=== PATIENT | female | born 1940 | race Caucasian/White ===

== ENCOUNTER → 2023-05-06 12:34 | Outpatient (REF) | payer OTHER, SELFPAY | LOC: RAD 12:34 | PROVIDERS: ATTENDING PHYSICIAN Surgery Vascular Surgery; FAMILY PHYSICIAN Internal Medicine Geriatric Medicine | DX: I71.43 Infrarenal abdominal aortic aneurysm, without rupture (principal); I65.23 Occlusion and stenosis of bilateral carotid arteries | CPT/HCPCS: 76770; 93880 ==

== ENCOUNTER → 2024-05-17 13:00 | Outpatient (REF) | payer OTHER, SELFPAY | LOC: DHVS 13:00 | PROVIDERS: ATTENDING PHYSICIAN Registered Nurse; FAMILY PHYSICIAN Internal Medicine Geriatric Medicine | DX: I71.43 Infrarenal abdominal aortic aneurysm, without rupture (principal); I65.23 Occlusion and stenosis of bilateral carotid arteries | CPT/HCPCS: 76770; 93880 ==

== ENCOUNTER 2024-08-29 22:48 | Inpatient (IN) | payer OTHER, SELFPAY ==
[2024-08-29] VITALS (7 sets, daily range): BP systolic 97–127; BP diastolic 56–92
[2024-08-29 20:25] LABS: % Basophils 0.6 % (0-2); % Eosinophils 1.4 % (0-6); % Immature Granulocytes 0.3 % (0-0.5); % Lymphocytes 21.9 % (20.5-51.1); % Monocytes 11.5 % (1.7-9.3); % Neutrophils 64.3 % (42.2-75.2); Absolute Basophils 0.1 10^3/uL (0-0.2); Absolute Eosinophils 0.1 10^3/uL (0-0.7); Absolute Lymphocytes 2.2 10^3/uL (1.2-3.4); Absolute Monocytes 1.2 10^3/uL (0.1-0.6); Absolute Neutrophils 6.6 10^3/uL (1.4-6.5); Hematocrit 35.5 % (37.0-47.0); Hemoglobin 11.5 g/dL (12.0-16.0); Mean Corp Hgb Conc. 32.4 g/dL (33.0-37.0); Mean Corpuscular Hgb 28.1 pg (27.0-31.0); Mean Corpuscular Volume 86.8 fL (81.0-99.0); Nucleated Red Blood Cells % 0 %; Platelet Count 176 10^3/uL (130-400); Red Blood Cell Count 4.09 10^6/uL (4.20-5.40); Red Cell Dist. Width 16.1 % (11.5-14.5); White Blood Cell Count 10.2 10^3/uL (4.8-10.8)
--- NOTE | 2024-08-29 20:40 | ED.GENMED ---
History of Present Illness
General
Chief Complaint: Chest Pain
Source: patient and spouse
Exam Limitations: none
Time Seen by Provider: 08/29/24 20:28
History of Present Illness
History of Present Illness:
83-year-old female with intermittent episodes of chest tightness and intermittent episodes of throat burning. Has had this intermittently in the past but much worse the last few days. Some shortness of breath with this. Currently asymptomatic
Past History
Past History
ED Past Medical History: CAD, COPD, GERD, HTN, Valvular disease and Other (umbilical hernia, rheumatoid arthritis)
ED Past Surgical History: Cardiac (cardiac stent x2, iliac artery stent) and Orthopedic (lumbar laminectiomy , right shoulder replacement, right TKR)
Social History
Tobacco: Non-smoker
Alcohol: None
Drug: None
Personal:
Living: with family
Review of Systems
Review of Systems
All Other Systems: Not applicable
Constitutional: Denies fever or chills
Respiratory: Denies cough
Phy Exam
Physical Exam
Physical Exam:
GENERAL: Alert and oriented in no apparent distress
EYE: Orbits normal.
NECK: Supple, no significant adenopathy.
ENT: Hoarse voice. Chronic
CARDIAC: Irregular irregular.
LUNGS: Clear breath sounds,normal
ABDOMEN: Soft, without focal tenderness or distention
NEUROLOGICAL: Alert and oriented , grossly non-focal
SKIN: Warm and dry, no rash or lesion, no discoloration, skin intact.
MUSCULOSKELETAL: No edema,no deformity.Good color
PSYCH: Normal and appropriate interaction.
Scores
Heart Score for Chest Pain Patients
STEMI patient?: No
History: Moderately Suspicious
ECG: Nonspecific Repolarization
Age: >/= 65 years
Risk Factors: >/= 3 Risk Factors or History of CAD
Troponin: </= Normal Limit
Heart Score for Chest Pain Patients: 6
Heart Score Risk: 20.3% MACE over next 6 weeks
Course
Orders/Labs/Results
Orders:
Orders
08/29/24 20:13
EKG [Electrocardiogram (*1)] Urgent
Reason for Study: Chest Pain
EKG- Treatment ONCE
08/29/24 20:17
Basic Metabolic Panel Urgent
Complete Blood Count/With Diff Urgent
Troponin I Urgent
08/29/24 20:40
CXR Port [CR Chest Portable - 1 View] Urgent
Comment:
Reason For Exam: Chest pain
Reason Study Needs to be Portable: Patient Unstable
08/29/24 21:19
Heparin 3,800 units IV NOW STA
Nursing to Place Non Medication Order As Directed
Physician Order: PTT 6 hours after initial start of Heparin infusion
Above order entered?: Yes
08/29/24 21:22
PTT Urgent
Comment: Obtain baseline before beginning heparin infusion if not already collected
08/29/24 21:30
Heparin 88657 Units/250 ml 25,000 units in 250 ml IV PER PROTOCOL
Weight to be used for heparin protocol in kilograms (kg):: 63.9
Protocol:: Cardiac Tx/Acute Coronary
PTT Goal Range to be used:: PTT 73 to 111 seconds
Order type:: Initial
INITIAL Infusion Dose (UNITS/KG/hr) & then follow protocol:: 12 units/kg/hr
Infusion Dose in UNITS/hr & then follow protocol (UNITS/hr):: 750
INFUSION RATE in mL/hr & then follow protocol (mL/hr):: 7.5
PTT less than or equal to 64 seconds:: Increase rate by 200 units/hr (+ 2 mL/hr)
PTT 64.1 to 72.9 seconds:: Increase rate by 100 units/hr (+ 1 mL/hr)
PTT 73 to 111 seconds:: Target Range. No change in rate.
PTT 111.1 to 130.9 seconds:: Decrease rate by 100 units/hr (- 1 mL/hr)
PTT 131 to 199.9 seconds:: HOLD for 1 hr. Then decrease rate by 200 units/hr (- 2 mL/hr)
PTT greater than or equal to 200 seconds:: HOLD for 2 hrs & Notify Provider. Then decrease by 200 units/hr (-
2 mL/hr)
Lab follow-up:: Each change, PTT q6h until 2 consecutive are therapeutic. Then PTT
daily.
08/29/24 22:00
Flush (0.9% Sodium Chloride) [Flush (Nss)] See Dose Instructions IV PER PROTOCOL
08/29/24 22:12
Metoprolol [Lopressor] 5 mg .ROUTE .STK-MED ONE
08/29/24 22:13
Metoprolol [Lopressor] 2.5 mg IV NOW STA
08/29/24 22:19
Electrocardiogram (*1) Stat
Reason for Study: Other
Other Reason for Exam: chest pain
EKG- Treatment ONCE
Troponin I Urgent
08/29/24 22:25
Metoprolol [Lopressor] 5 mg .ROUTE .STK-MED ONE
08/29/24 22:26
Metoprolol [Lopressor] 2.5 mg IV NOW STA
08/30/24 03:50
PTT Routine
Abnormal Lab Results
08/29/24
20:17
RBC 4.09 L 10^6/uL
(4.20-5.40)
Hgb 11.5 L g/dL
(12.0-16.0)
Hct 35.5 L %
(37.0-47.0)
MCHC 32.4 L g/dL
(33.0-37.0)
RDW 16.1 H %
(11.5-14.5)
MPV 12.0 H fL
(7.4-10.4)
Absolute Neuts (auto) 6.6 H 10^3/uL
(1.4-6.5)
Absolute Monos (auto) 1.2 H 10^3/uL
(0.1-0.6)
Monocytes % 11.5 H %
(1.7-9.3)
Chloride 108 H mmol/L
(98-107)
BUN 21 H mg/dl
(7-17)
Glucose 121 H mg/dl
(70-99)
Troponin I 0.049 H* ng/ml
08/29/24 20:17
08/29/24 20:17
Vital Signs
Initial and Last Documented VS:
Initial Vital Signs
Temp BP Pulse Ox
97.6 F 127/77 96
08/29/24 20:12 08/29/24 20:12 08/29/24 20:12
Last Documented Vital Signs
Temp Pulse Resp BP Pulse Ox
97.6 F 104 8 115/79 97
08/29/24 20:12 08/29/24 22:26 08/29/24 22:00 08/29/24 22:26 08/29/24 22:00
MDM/Problems Addressed
Differential Diagnosis Includes:
Patient's story is somewhat concerning for new onset angina. In addition she is in atrial fibrillation. No contraindication to thinners. Will start heparin. Rate controlled currently on her own metoprolol.
*Pulse Oximetry
Patient hypoxic: no (97%)
*EKG
Interpreted by ED Provider?: Yes
Interpretation: abnormal
Comparison EKG: changes noted
Heart Rate: 78
Rate: normal
Rhythm: a-fib and PVC's
[place]: left axis deviation
Interval: normal interval
QRS Pattern: normal QRS
Ischemia: non-specific ST changes
*Critical Care Note
Total Time (30-74mins, 75-104mins- exclusive of procedures): 45
Update Note
Update Note:
2219.... Patient some recurring symptoms of chest tightness into her throat. A-fib was more rapid at this time. Blood pressure borderline however. Given a small dose of Lopressor. Rechecked. Blood pressure stable. Will give another 2-1/2 of
Lopressor. Check EKG and troponin.
2229... Recheck. Repeat EKG atrial fibrillation 97. No ischemic changes. Left axis deviation.
ED Attending Note
-
Portions of this chart may have been created with voice recognition software.� Occasional wrong word or��sound alike� substitutions may have occurred due to the inherent limitations of voice recognition software.
Discharge Plan
Departure
Patient Disposition: Admit
Date of Disposition: 08/29/24
Time of Disposition: 21:20
Presentation/result/management discussed w/ accepting MD/DO: Hospitalist
Discharge Problem:
Unstable angina, New diagnosis atrial fibrillation
Prescriptions:
No Action
ezetimibe [Zetia] 10 mg Tablet
10 mg PO DAILY
atorvastatin [Lipitor] 40 mg Tablet
40 mg PO HS
aspirin 81 mg Tablet,Delayed Release (Dr/Ec)
81 mg PO DAILY
tramadol 50 mg Tablet
50 mg PO BID
prednisone 1 mg Tablet
4 mg PO DAILY
losartan 25 mg Tablet
25 mg PO DAILY
docusate sodium [Colace] 100 mg Capsule
200 mg PO DAILY
metoprolol succinate [Toprol XL] 25 mg Tablet Extended Release 24 Hr
25 mg PO DAILY
cholecalciferol (vitamin D3) [Vitamin D3] 25 mcg (1,000 unit) Tablet
25 mcg PO DAILY
omeprazole 20 mg Tablet,Delayed Release (Dr/Ec)
20 mg PO BID
PreserVision AREDS 2,148 mcg-113 mg-45 mg-17.4mg Tablet
1 tab PO BID
Referrals:
Isis Hoskins MD [Family Provider, Internal Medicine]
Interventions
Interventions:
*Risk Screen - Suicide Last Done: 08/29/24 20:34
*General Assessment Last Done: 08/29/24 20:12
*Neglect/Abuse Screening Last Done: 08/29/24 20:34
*ED- Fall Risk Assessment Last Done: 08/29/24 20:12
*ED COVID-19 Vaccine History Last Done: 08/29/24 20:12
ED- Cardiac Assessment Last Done: 08/29/24 20:12
Discharge Date and Time
Print Language: [id number]
[2024-08-29 20:52] LABS: Troponin I 0.049 ng/ml
[2024-08-29 20:54] LABS: Blood Urea Nitrogen 21 mg/dl (7-17); Calcium 9.5 mg/dl (8.4-10.2); Carbon Dioxide 24 mmol/L (22-30); Chloride 108 mmol/L (98-107); Glucose 121 mg/dl (70-99); Sodium 139 mmol/L (135-145); eGFR > 60.00
[2024-08-29 21:38] LABS: APTT 29.6 Sec (23.4-35.0)
[2024-08-29] MEDS: FLUSH (NSS) 1 FLUSH IV (21:40)
[2024-08-29] MEDS: HEPARIN 3800 UNITS IV (21:40)
[2024-08-29] MEDS: HEPARIN 25000 UNITS/250 ML IV (21:48)
--- NOTE | 2024-08-29 21:53 | PTCARENOTE ---
this RN had second RN, Michaela Zimmerman co-sign heparin bolus of 3800 U. MAR did not make second RN put in credentials.
--- NOTE | 2024-08-29 21:59 | HPS.HSE ---
Family Physician
-
Family Physician: Isis Hoskins
Chief Complaint
-
chest pain
History of Present Illness
Patient is a 83-year-old female with past medical history significant for hypertension, hyperlipidemia, hypothyroidism, rheumatoid arthritis, peripheral vascular disease and AAA who presented to [facility] ED for evaluation of chest pain. Patient and
at bedside assisted with HPI. Patient reports she has intermittently had this chest discomfort for months, sometime having weeks go by in between episodes. This current episode has been the most severe and has not alleviated since its start
yesterday evening around dinner. She describes chest pain as a burning and tightness in the midsternal area along with tightness in throat. She denies any recent illness, fever, chills, cough, shortness of breath, nausea, vomiting, constipation,
diarrhea or urinary symptoms.
Medical History
Past Medical History
Past Medical History: Reports Other
Additional Past Medical History:
hypertension
hyperlipidemia
hypothyroidism
rheumatoid arthritis
peripheral vascular disease
AAA (abdominal aortic aneurysm)
lumbar disc disease
pseudogout of right knee
inferior myocardial infarction
Past Surgical History: Reports Other
Additional Past Surgical History:
angioplasty/stenting of the right coronary artery
angioplasty/stenting of the left anterior descending artery 02/24
lumbar laminectomy/fusion 12/03
bilateral cataract extractions
right shoulder replacement 12/07
stenting of the iliac artery
r knee repl 03/2020
Social History
Tobacco: Former Smoker
Alcohol: None
Drug: None
Personal:
Living: With Family
Employment: Retired
Family History
Family History: Not pertinent
Allergies / Home Medications
Allergies reflects when Allergies were last updated in [employer].
Home Medications with original date entered in [employer]
Allergy/Medication List:
Allergies
Allergy/AdvReac Type Severity Reaction Status Date / Time
pantoprazole Allergy Shortness Verified 08/29/24 20:11
of Breath
Home Medications
aspirin 81 mg tablet,delayed release 81 mg PO DAILY 08/29/24
atorvastatin 40 mg tablet (Lipitor) 40 mg PO HS 08/29/24
cholecalciferol (vitamin D3) 25 mcg (1,000 unit) tablet (Vitamin D3) 25 mcg PO DAILY 08/29/24
docusate sodium 100 mg capsule (Colace) 200 mg PO DAILY 08/29/24
ezetimibe 10 mg tablet (Zetia) 10 mg PO DAILY 08/29/24
losartan 25 mg tablet 25 mg PO DAILY 08/29/24
metoprolol succinate 25 mg tablet,extended release 24 hr (Toprol XL) 25 mg PO DAILY 08/29/24
omeprazole 20 mg tablet,delayed release 20 mg PO BID 08/29/24
prednisone 1 mg tablet 4 mg PO DAILY 08/29/24
tramadol 50 mg tablet 50 mg PO BID 08/29/24
vitamins A,C,V-xmzx-tyoabk 2,148 mcg-113 mg-45 mg-17.4 mg tablet (PreserVision AREDS) 1 tab PO BID 08/29/24
Review of Systems
-
History Source: Patient
Cardiac: Reports Chest Pain (tightness and burning that radiates into to throat )
Physical Exam
Vital Signs
Vital Signs
Temp Pulse Resp BP Pulse Ox
97.6 F 115 11 103/56 97
08/29/24 20:12 08/29/24 21:15 08/29/24 21:15 08/29/24 21:00 08/29/24 21:15
Physical Exam
General: Well Developed, Well Nourished, Conversant and Morbidly Obese
HEENT: NormoCephalic, Moist mucous membranes, Atraumatic, Nose Appears Normal and Ears Appear Normal
Respiratory: Clear
Cardiac: S1/S2, Irregular Rhythm and Tachycardia
Breast: Deferred by me
GI: Soft, Non Tender, Non Distended and Normal Bowel Sounds
Rectal: Deferred by Provider
Genito-urinary: Deferred by me
Musculoskeletal: No Clubbing, No Cyanosis and No Edema
Skin: Warm and IV/Catheter Site
Neuro: Awake, Alert, AO x 3 and Nonfocal/grossly intact
Psych: Calm and Intact Judgment/Insight
Laboratory Results
-
08/29/24 20:17
08/29/24 20:17
Laboratory Results
APTT 29.6 Sec (23.4-35.0) 08/29/24 21:22
Total Bilirubin Cancelled 08/29/24 20:17
AST Cancelled 08/29/24 20:17
ALT Cancelled 08/29/24 20:17
Alkaline Phosphatase Cancelled 08/29/24 20:17
Troponin I 0.049 ng/ml H* 08/29/24 20:17
Data Reviewed
-
Diagnostic Radiology: Report Reviewed by me (CXR: Mild CHF. Cannot rule out component of underlying chronic interstitial lung disease.)
Medical Tests (Nuc Med, Echo, EKG etc): Report Reviewed by me (EKG: ATRIAL FIBRILLATION WITH PREMATURE VENTRICULAR OR ABERRANTLY CONDUCTED COMPLEXES LEFT AXIS DEVIATION INFERIOR INFARCT (CITED ON OR BEFORE 08-FEB-2023) POSSIBLE ANTERIOR INFARCT ,
AGE UNDETERMINED)
Lab Data: Labs Reviewed by me (trop 0.049)
Impression/Plan
-
IMPRESSION/PLAN:
#new onset atrial fibrillation
trop 0.049
CXR: Mild CHF.
Cannot rule out component of underlying chronic interstitial lung disease.
EKG: ATRIAL FIBRILLATION WITH PREMATURE VENTRICULAR OR ABERRANTLY CONDUCTED COMPLEXES
LEFT AXIS DEVIATION
INFERIOR INFARCT (CITED ON OR BEFORE 08-FEB-2023)
POSSIBLE ANTERIOR INFARCT , AGE UNDETERMINED
- Admit to IVU
- Consult Cardiology
- Heparin gtt
- Cardizem gtt
- request records from [facility], Dr. Marty Pearce
#hypertension
- continue losartan and metoprolol
#hyperlipidemia
- continue aspirin, atorvastatin and ezetimibe
#Hx inferior myocardial infarction
s/p angioplasty/stenting
- continue aspirin and atorvastatin
#rheumatoid arthritis
- continue prednisone
#hypothyroidism
#peripheral vascular disease
#AAA (abdominal aortic aneurysm)
#lumbar disc disease
#pseudogout of right knee
Code status: DNR
DVT prophylaxis: heparin gtt
[2024-08-29] MEDS: LOPRESSOR 2.5 MG IV ×2 (22:14→22:26)
[2024-08-29] MEDS: CARDIZEM 125 IV (22:49)
--- NOTE | 2024-08-29 22:51 | W.PN.UPDATE ---
Update Note
Progress Note Update
Patient seen in conjunction with HUGH. I agree the findings suspect COVID is not probably [employer].
Briefly, this is a 83-year-old female with past medical history significant for CAD status post inferior myocardial infarction, hypertension, hyperlipidemia, AAA, rheumatoid arthritis, hypothyroid presenting to the emergency department with a 1 day
history of substernal chest pain pressure and some dyspnea on exertion. Denies any nausea vomiting diaphoresis. Denies any lower extremity swelling. Denies any recent changes in medications. Denies any prior history of atrial fibrillation.
In the emergency department the patient was found to be tachycardic to the 140s. She was in atrial fibrillation. ECG shows A-fib rate in the 140s. Troponin was 0.049.
On vitals blood pressure was 115/80 with a pulse of 110 and she was satting 95% on room air. CBC was unremarked. Electrolytes were all within normal limits. Magnesium is pending. BUN and creatinine were normal.
Chest x-ray shows no acute infiltrates.
Patient received a bolus of metoprolol with some improvement in her heart rate. She currently states that she is not having any chest discomfort.
Given elevated troponin, repeat afebrile, history of HI, and she likely has rate related ischemic changes but cannot rule out myocardial injury.
Assessment and plan
Rate related ischemia likely secondary to uncontrolled atrial fibrillation
- Admit to IVU
- Started on heparin drip
- Will give 1 dose of aspirin
- Will start Cardizem drip to maintain rate less than 100
- Continue patient's home metoprolol daily, continue home aspirin and statin
- Check TSH, check echo, cardiovascular panel
- N.p.o. after midnight in case patient may need cardioversion
- Cardiology consultation
DVT prophylaxis�on heparin drip
CODE STATUS�DNR
[2024-08-29 23:07] LABS: Troponin I 0.059 ng/ml
[2024-08-30] VITALS (10 sets, daily range): BP systolic 101–136; BP diastolic 58–95; BMI 30.1; BMI 29.9
--- NOTE | 2024-08-30 02:52 | PTCARENOTE ---
Pt. rec'd from ED into room 2248 AAOx3, (very [place]), VSS, in Afib rate 80's-110's. Cardizem infusing at 5 mg/hr, heparin at 750 units/hr. Pt. denies any CP/discomfort. Bilateral lungs with faint crackles in bases, RA pulse ox 99%, no shortness of
breath. Pt. encouraged to stay in bed to control HR, Purewick in place. Pt. oriented to room and plan of care, understanding verbalized. Pt. currently sleeping, current HR 75 - A-fib.
[2024-08-30 04:03] LABS: APTT 125.9 Sec (23.4-35.0)
[2024-08-30 04:17] LABS: ALT (SGPT) 16 U/L (0-35); AST (SGOT) 28 U/L (14-36); Albumin 3.9 g/dl (3.5-5.0); Alkaline Phosphatase 55 U/L (38-126); Blood Urea Nitrogen 18 mg/dl (7-17); Carbon Dioxide 23 mmol/L (22-30); Chloride 112 mmol/L (98-107); Estimated Creatinine Clearance 46 ml/min; Glucose 89 mg/dl (70-99); HDL Cholesterol 78 mg/dl; LDL Cholesterol, Calculated 41 mg/dl; Magnesium 1.8 mg/dl (1.6-2.3); Phosphorus 3.4 mg/dl (2.5-4.5); Potassium 4.5 mmol/L (3.5-5.1); Sodium 142 mmol/L (135-145); Total Bilirubin 1.5 mg/dl (0.2-1.3); Total Cholesterol 133 mg/dl (50-199); Total Protein 6.4 g/dl (6.3-8.2); Triglyceride 74 mg/dl (10-149); Very Low Density Lipoprotein 14 mg/dl (0-30); eGFR > 60.00
[2024-08-30 04:19] LABS: Hematocrit 35.9 % (37.0-47.0); Mean Corp Hgb Conc. 33.4 g/dL (33.0-37.0); Mean Corpuscular Hgb 28.6 pg (27.0-31.0); Mean Corpuscular Volume 85.5 fL (81.0-99.0); Mean Platelet Volume 12.2 fL (7.4-10.4); Platelet Count 167 10^3/uL (130-400); Red Cell Dist. Width 16.1 % (11.5-14.5); White Blood Cell Count 9.8 10^3/uL (4.8-10.8)
[2024-08-30 04:51] LABS: NT-proBNP 6830 pg/ml; Troponin I 0.064 ng/ml
[2024-08-30] MEDS: ULTRAM 50 MG PO ×2 (07:09→20:28)
--- NOTE | 2024-08-30 07:50 | W.PN.HOSP.TC ---
Today's Communication/Plan
-
Echocardiogram
Cardiology consult
Assessment / Plan
Assessment / Plan
Gen-AAOx3, NAD
HEENT-NC, AT, anicteric, clear oral mm
Neck-supple
CV-reg, no M, +S1/S2
Lungs-clear B/L
Abd-soft, NT, ND
Ext-no edema
Musculoskeletal-no cyanosis, clubbing
Skin-warm and dry
Neuro-grossly non-focal
Psych-calm, cooperative
New onset atrial fibrillation -with RVR. Rate now controlled with IV Cardizem. Continue IV heparin. Await cardiology input. Check echocardiogram. TSH was normal.
Troponin elevation -suspect acute nonischemic myocardial injury due to rapid atrial fibrillation. Chest pain resolved.
CAD -history of angioplasty/stenting of RCA, LAD February 2005.
Hyperlipidemia -atorvastatin.
Chronic pain syndrome/chronic opiate dependence -has chronic lower back pain. Uses tramadol at home.
Hypothyroidism -questionable diagnosis. TSH normal. Does not appear to be on replacement therapy.
History of abdominal aortic aneurysm
Rheumatoid arthritis
PAD
History of pseudogout
Obesity due to excess calories
DNR
Anticipated Discharge: 24 - 48 hours
Subjective/Interval History
-
Date of Service: August 30, 2024
Patient seen and examined. Complaining of chronic lower back pain. Denies chest pain.
Objective Data
-
Labs:
Laboratory Results
08/29/24 08/29/24 08/30/24
20:17 21:22 03:36
WBC 10.2
Hgb 11.5 L
Hct 35.5 L
Plt Count 176
APTT 29.6 125.9 H
Sodium 139 142
Potassium 4.5
Chloride 108 H 112 H
Carbon Dioxide 24 23
BUN 21 H 18 H
Creatinine 0.7 0.7
Glucose 121 H 89
Calcium 9.5 10.0
Total Bilirubin Cancelled 1.5 H
AST Cancelled 28
ALT Cancelled 16
Alkaline Phosphatase Cancelled 55
08/30/24 08/30/24
03:52 10:10
WBC 9.8
Hgb 12.0
Hct 35.9 L
Plt Count 167
APTT Pending
Sodium
Potassium
Chloride
Carbon Dioxide
BUN
Creatinine
Glucose
Calcium
Total Bilirubin
AST
ALT
Alkaline Phosphatase
Vital Signs:
Vital Signs
Temp Pulse Resp BP Pulse Ox
98.3 F 71 20 136/65 98
08/30/24 03:38 08/30/24 06:00 08/30/24 03:38 08/30/24 03:00 08/30/24 03:38
I&O
08/29/24 08/30/24 08/31/24
06:59 06:59 06:59
Intake Total 240 / 240
Output Total 300 / 300
Balance -60 / -60
Review of Systems
-
History Source: Patient
All other systems: Reviewed and negative
--- NOTE | 2024-08-30 08:00 | CON.CAR ---
Addendum entered and electronically signed by Wero Degroot MD 08/30/24 12:20:
I saw and examined the patient.
The [employer] OFFICER's note was reviewed and I agree with the note.
Comment:
83-year-old female with coronary artery disease who presents with subacute chest tightness, found to have new atrial fibrillation for which cardiology is consulted. She notes that she has had a sensation of chest fullness radiating to her neck
intermittently for at least the past several months. Before coming to the ER, she developed the sensation again and it did not go away so she came in. In the ER she was found to be in A-fib with RVR. She was started on diltiazem and heparin
infusions and heart rates are now in the 70s�80s. She is currently asymptomatic.
Physical exam notable for regular rate, irregular rhythm, systolic murmur, clear lungs, no lower extremity edema.
Labs notable for troponin 0.049 -> 0.059 -> 0.064 -> 0.077
ECG 08/30/2024: Atrial fibrillation, HR 71 bpm, old inferior infarct
Atrial fibrillation. New diagnosis this admission. Unknown duration. Heart rates are currently well-controlled on metoprolol 25 mg twice daily and diltiazem drip. Give an extra dose of metoprolol now and wean diltiazem drip. Goal HR less than
110 bpm. [id number] 5. She is currently on a heparin drip. Ask case management to kira Nixon. TSH normal. Follow-up echocardiogram. We discussed BRANDEN/DCCV and she does not want to go forward with this. She would prefer a rate control
strategy.
Troponin elevation is most likely due to nonischemic myocardial injury in the setting of A-fib with RVR.
Original Note:
Consultation
Consultation Request
Date/Time Consultation Requested: 08/29/2024 23:45
Date/Time Consultation Performed: 08/30/2024 08:00
Requesting Provider: HUGH Ribeiro
Performing Provider: HUGH Sarmiento for Dr. Degroot
Reason for Consultation: New onset atrial fibrillation
Medical History
-
Chief Complaint: Chest pain
History of Present Illness:
Norma Temple is an 83-year-old female with coronary artery disease (PCI to RCA 1998, PCI LAD 2004), hypertension, dyslipidemia, PVD, AAA, RA, and hypothyroidism who presented to the emergency department with a chief complaint of chest pain. Her chest
pain started on Thursday evening after dinner. She described it as midsternal anterior burning. She had associated shortness of breath. She denies diaphoresis, nausea, and dizziness. The discomfort did not radiate. The pain persisted overnight and
throughout Thursday. She has been having chest pain in the evening after dinner for the past year. She presented to the emergency department and was found to be in atrial fibrillation with rapid ventricular response. She is currently chest pain free.
Past Medical History
Past Medical History: CAD, Hypothyroidism, NV (Inferior) and Other (AAA, PVD)
Past Surgical History: Orthopedic
Social History
Tobacco: Former Smoker
Personal:
Living: Assisted Living ([facility])
Employment: Retired
Family History
Family History: Reviewed & Not Pertinent
Allergies / Home Medications
Allergy/AdvReac Type Severity Reaction Status Date / Time
pantoprazole Allergy Shortness Verified 08/29/24 20:11
of Breath
�Medication �Instructions �Recorded �Confirmed �Type
aspirin 81 mg tablet,delayed 81 mg PO DAILY 08/29/24 08/29/24 History
release
atorvastatin 40 mg tablet (Lipitor) 40 mg PO HS 08/29/24 08/29/24 History
cholecalciferol (vitamin D3) 25 25 mcg PO DAILY 08/29/24 08/29/24 History
mcg (1,000 unit) tablet (Vitamin
D3)
docusate sodium 100 mg capsule 200 mg PO DAILY 08/29/24 08/29/24 History
(Colace)
ezetimibe 10 mg tablet (Zetia) 10 mg PO DAILY 08/29/24 08/29/24 History
losartan 25 mg tablet 25 mg PO DAILY 08/29/24 08/29/24 History
metoprolol succinate 25 mg 25 mg PO DAILY 08/29/24 08/29/24 History
tablet,extended release 24 hr
(Toprol XL)
omeprazole 20 mg tablet,delayed 20 mg PO BID 08/29/24 08/29/24 History
release
prednisone 1 mg tablet 4 mg PO DAILY 08/29/24 08/29/24 History
tramadol 50 mg tablet 50 mg PO BID 08/29/24 08/29/24 History
vitamins A,C,X-chdj-pnmsgi 2,148 1 tab PO BID 08/29/24 08/29/24 History
mcg-113 mg-45 mg-17.4 mg tablet
(PreserVision AREDS)
Review of Systems
-
History Source: Patient
All other systems: Negative unless noted
Constitutional: No Symptoms
EENT: No Symptoms
Respiratory: No Symptoms
Cardiac: No Symptoms
Abdomen/GI: No Symptoms
: No Symptoms
Musculoskeletal: No Symptoms
Skin: No Symptoms
Neurological: No Symptoms
Endocrine: No Symptoms
Hematologic/Lymphatic: No Symptoms
Physical Exam
Vital Signs
Temp Pulse Resp BP Pulse Ox
98.3 F 71 20 136/65 98
08/30/24 03:38 08/30/24 06:00 08/30/24 03:38 08/30/24 03:00 08/30/24 03:38
Lab Results
08/30/24 03:52
08/30/24 03:36
Troponin I 0.064 ng/ml H* 08/30/24 03:36
Troponin I Cancelled 08/30/24 03:36
Zyf-F-Ejqilwupqub Pept 6830 pg/ml 08/30/24 03:36
Physical Exam
General: Well Developed, Well Nourished, No Apparent Distress and Comfortable
HEENT: Normocephalic, Anicteric and Moist Mucous Membranes
Respiratory: Clear and Non Labored Respirations
Cardiac: S1/S2 and Irregular Rhythm
Breast: Deferred by me
GI: Soft, Non Tender, Non Distended and Normal Bowel Sounds
Rectal: Deferred by Provider
Genito-urinary: No Costovertebral Tender
Musculoskeletal: No Clubbing and No Cyanosis
Skin: Warm and Dry
Neuro: Nonfocal/Grossly Intact
Hematologic/Lymphatic: No Lymphadenopathy
Psych: Calm
Impression / Plan
-
I/P: 83F with coronary artery disease (PCI to RCA 1998, PCI LAD 2004), hypertension, dyslipidemia, PVD, carotid stenosis, AAA, RA, and hypothyroidism who presented to the emergency department with a chief complaint of chest pain. She was found to
be in atrial fibrillation with rapid ventricular response.
Primary Community Pharmacist: Dr. Pearce
Atrial fibrillation with rapid ventricular response
- Rate control with diltiazem gtt & increase metoprolol succinate to BID
- Oral Anticoagulation: None prior to arrival, on hpearin gtt, case management to malone apixaban 5mg BID
- [id number]: score at least 5 (HTN, age 75 or more, Vascular disease, female gender)
- Update echocardiogram
Abnormal troponin, nonischemic myocardial injury in the setting of atrial arrhythmia
- Trend to peak, currently 0.064
- EKG stable
Chest pain
- Occurs after dinner
- More symptomatic with a full meal
CAD
- Chest pain-free
- PCI to RCA 1998, PCI LAD 2004
- Stop ASA when DOAC started
HTN, stable
Dyslipidemia, goal LDL <70, continue atorvastatin and Zetia
AAA, 3.3 x 3.5, followed by vascular surgery
Carotid stenosis, <50% bilaterally, follows with vascular surgery
PAD and PVD, denies claudication
Data Reviewed
-
EKG: Report Reviewed by me
Radiology: Report Reviewed by me (CXR: Mild CHF. Cannot rule out component of underlying chronic interstitial lung disease.)
Medical Tests (Nuc Med, Echo etc): Report Reviewed by me
Labs: Labs Reviewed by me
Old Records: Reviewed
[2024-08-30] MEDS: ZETIA 10 MG PO (08:26)
[2024-08-30] MEDS: ASPIR LOW (ENTERIC COATED) 81 MG PO (08:26)
[2024-08-30] MEDS: COZAAR 25 MG PO (08:27)
[2024-08-30] MEDS: PROTONIX 40 MG PO ×2 (08:27→20:28)
[2024-08-30] MEDS: OCUVITE SOFTGEL 1 CAP PO ×2 (08:27→20:28)
[2024-08-30] MEDS: VITAMIN D3 (cholecalciferol) 25 MCG PO (08:27)
[2024-08-30] MEDS: DELTASONE 4 MG PO (08:27)
[2024-08-30] MEDS: TOPROL XL 25 MG PO ×2 (08:27→20:28)
--- NOTE | 2024-08-30 09:25 | PTCARENOTE ---
Patient very uncomfortable this morning during shift change. Complaining that her back was very sore, usually takes tramadol for this chronic pain. Required assist of two with rolling walker to transfer to the chair. Patient medicated by prior shift
with scheduled tramadol. Remains in AF, IV heparin and cardizem infusing as ordered, call hunter in reach.
--- NOTE | 2024-08-30 09:49 | CM ---
Addendum entered by Lyndsey Crenshaw RN 08/30/24 12:48:
Pricing on Xarelto is $47 for a 30 day supply
Original Note:
Pricing on Eliquis through the patient's pharmacy is $47 for a 30 day supply. I will place a free 30 day coupon in the patient's red discharge folder.
[2024-08-30 10:35] LABS: Glycohemoglobin (HgbA1c) 5.9 % (4.0-5.6)
--- NOTE | 2024-08-30 10:48 | CM ---
Chart reviewed. Patient is independent of ADLS, lives with her IL in a apartment at [facility], elevator access, ambulates with a RW. Patient is not current with VN. Plan is for the patient to return home. CM to follow
[2024-08-30 11:16] LABS: APTT 57.5 Sec (23.4-35.0)
[2024-08-30 11:20] LABS: Troponin I 0.077 ng/ml
[2024-08-30] MEDS: LOPRESSOR 25 MG PO (12:45)
[2024-08-30 18:04] LABS: APTT 98.6 Sec (23.4-35.0)
[2024-08-30] MEDS: LIPITOR 40 MG PO (22:38)
[2024-08-30] MEDS: COLACE 200 MG PO (22:38)
--- NOTE | 2024-08-30 23:21 | PTCARENOTE ---
Received patient at change of shift. Afib on the monitor, HR in the 80s. Heparin running as per protocol, see documentation. No complaints from pt at this time, Call hunter within reach.
[2024-08-30 23:56] LABS: APTT 74.6 Sec (23.4-35.0)
[2024-08-31] VITALS (10 sets, daily range): BP systolic 110–150; BP diastolic 74–117; PULSE 102–142; O2SAT 95–98
[2024-08-31] MEDS: HEPARIN 25000 UNITS/250 ML IV (05:42)
[2024-08-31 06:31] LABS: APTT 83.5 Sec (23.4-35.0)
--- NOTE | 2024-08-31 07:37 | W.PN.HOSP.TC ---
Addendum entered and electronically signed by Quintin Carbajal DO 08/31/24 12:05:
I spoke with cardiology service, okay to discharge today with outpatient follow-up.
Original Note:
Today's Communication/Plan
-
PT/OT
Assessment / Plan
Assessment / Plan
Gen-AAOx3, NAD
HEENT-NC, AT, anicteric, clear oral mm
Neck-supple
CV-reg, no M, +S1/S2
Lungs-clear B/L
Abd-soft, NT, ND
Ext-no edema
Musculoskeletal-no cyanosis, clubbing
Skin-warm and dry
Neuro-grossly non-focal
Psych-calm, cooperative
New onset atrial fibrillation -with RVR. Rates improved, continue Toprol-XL, increase dose if okay with cardiology. Continue IV heparin. TSH normal.
Echocardiogram shows normal biventricular size and systolic function without regional wall motion abnormality, LVEF 60 to 65%, massively dilated left atrium. Mild functional mitral stenosis. Mild MR.
Troponin elevation -suspect acute nonischemic myocardial injury due to rapid atrial fibrillation. Chest pain resolved.
CAD -history of angioplasty/stenting of RCA, LAD February 2005.
Hyperlipidemia -atorvastatin.
Chronic pain syndrome/chronic opiate dependence -has chronic lower back pain. Uses tramadol at home.
Hypothyroidism -questionable diagnosis. TSH normal. Does not appear to be on replacement therapy.
History of abdominal aortic aneurysm
Rheumatoid arthritis
PAD
History of pseudogout
Obesity due to excess calories
DNR
PT/OT
Anticipated Discharge: Within 24 hours
Subjective/Interval History
-
Date of Service: August 31, 2024
Patient seen and examined. Complaining of chronic lower back pain. Eager to go home.
Objective Data
-
Labs:
Laboratory Results
08/30/24 08/31/24
23:35 05:50
APTT 74.6 H 83.5 H
Vital Signs:
Vital Signs
Temp Pulse Resp BP Pulse Ox
97.4 F 97 18 139/94 99
08/31/24 02:23 08/31/24 02:22 08/31/24 02:23 08/31/24 02:22 08/31/24 02:23
I&O
08/30/24 08/31/24 09/01/24
06:59 06:59 06:59
Intake Total 240 / 240 1270 / 1270
Output Total 300 / 300
Balance -60 / -60 1270 / 1270
Review of Systems
-
History Source: Patient
All other systems: Reviewed and negative
--- NOTE | 2024-08-31 08:12 | PTCARENOTE ---
Assisted patient this morning with rolling walker to the bathroom, sitting oob in the chair now. Remains in AF, IV heparin infusing at 850 units/hr, PTT therapeutic. Call hunter in reach, waiting for breakfast.
[2024-08-31] MEDS: PROTONIX 40 MG PO (09:30)
[2024-08-31] MEDS: OCUVITE SOFTGEL 1 CAP PO (09:30)
[2024-08-31] MEDS: ASPIR LOW (ENTERIC COATED) 81 MG PO (09:30)
[2024-08-31] MEDS: DELTASONE 4 MG PO (09:30)
[2024-08-31] MEDS: COZAAR 25 MG PO (09:30)
[2024-08-31] MEDS: VITAMIN D3 (cholecalciferol) 25 MCG PO (09:31)
[2024-08-31] MEDS: TOPROL XL 25 MG PO (09:31)
[2024-08-31] MEDS: FLUSH (NSS) 1 FLUSH IV (09:31)
[2024-08-31] MEDS: ULTRAM 50 MG PO (09:31)
[2024-08-31] MEDS: ZETIA 10 MG PO (09:31)
--- NOTE | 2024-08-31 11:54 | W.PN.CD ---
Today's Communication / Plan
-
Increase metoprolol to 50 mg twice daily
Start Eliquis 5 mg twice daily
Outpatient follow-up with Dr. Pearce
Impression / Plan
-
I/P: 83F with coronary artery disease (PCI to RCA 1998, PCI LAD 2004), hypertension, dyslipidemia, PVD, carotid stenosis, AAA, RA, and hypothyroidism who presented to the emergency department with a chief complaint of chest pain. She was found to
be in atrial fibrillation with rapid ventricular response.
Primary Felting Machine Operator Helper: Dr. Pearce
Atrial fibrillation with rapid ventricular response
- Increase metoprolol to 50 mg twice daily
- Oral Anticoagulation: Stop heparin drip and start apixaban 5 mg twice daily
- [id number]: score at least 5 (HTN, age 75 or more, Vascular disease, female gender)
- TTE 08/30/2024: LVEF 60-65%, dilated LA, mild MS, mild MR
Abnormal troponin, nonischemic myocardial injury in the setting of atrial arrhythmia
- Okay to stop trending
Chest fullness
- Occurs after dinner
- More symptomatic with a full meal
- Possibly related to GERD versus symptomatic A-fib
CAD
- Chest pain-free
- PCI to RCA 1998, PCI LAD 2004
- Stop ASA when DOAC started
HTN, stable
Dyslipidemia, goal LDL <70, continue atorvastatin and Zetia
AAA, 3.3 x 3.5, followed by vascular surgery
Carotid stenosis, <50% bilaterally, follows with vascular surgery
PAD and PVD, denies claudication
Subjective: Patient feels well this morning. No cardiovascular complaints.
Telemetry: Atrial fibrillation with HR 70�80s overnight. Up to 100s�110s this a.m.
Physical Exam
Vital Signs/Labs
Vital Signs
Temp Pulse Resp BP Pulse Ox
97.9 F 111 18 130/96 96
08/31/24 11:41 08/31/24 09:00 08/31/24 11:41 08/31/24 08:50 08/31/24 11:41
08/30/24 08/31/24 09/01/24
06:59 06:59 06:59
Actual Weight 135 lb 12.876 oz
08/30/24 03:52
08/30/24 03:36
APTT 83.5 Sec (23.4-35.0) H 08/31/24 05:50
Magnesium 1.8 mg/dl (1.6-2.3) 08/30/24 03:36
Triglycerides 74 mg/dl (10-149) 08/30/24 03:36
LDL Cholesterol, Calc 41 mg/dl 08/30/24 03:36
VLDL Cholesterol, Calc 14 mg/dl (0-30) 08/30/24 03:36
HDL Cholesterol 78 mg/dl 08/30/24 03:36
08/30/24
03:36
Rok-D-Uunhhkaajxh Pept 6830
LAB Results
08/29/24 08/29/24 08/30/24
20:17 22:35 02:44
Troponin I 0.049 H* 0.059 H* Cancelled
08/30/24 08/30/24 08/30/24
03:36 03:36 10:39
Troponin I Cancelled 0.064 H* 0.077 H*
Physical Exam
Constitutional: No acute distress and Comfortable
Cardiovascular: Pedal edema is absent, Rhythm/rate is irregular, S1S2 is normal and Murmur/rub/gallop absent
Respiratory: Respiratory effort normal and Lungs clear to auscul.
Neuro/Psych: AO x 3
Data Reviewed
-
Date of Service: August 31, 2024
Medical Decision Making: Reviewed Test Results, Independent Historian Assessment, Test Interpretation and Review of Case with other Provider
EKG: Tracing Personally Visualized and interpreted
Echo: Report Reviewed by me
Labs: Labs Reviewed by me
--- NOTE | 2024-08-31 12:13 | W.DS.TRANS ---
DC Summary - Customer Success Director
-
Discharge Instructions:
Sleep Apnea Risk Low
Discharge Diagnosis/Procedures Rapid atrial fibrillation
Diet Low Cholesterol,Low Fat
Activity As tolerated
Driving Restrictions No driving
Bathing Restrictions None
Instructions:
Stand-Alone Forms:
Changes to Home Medications: Yes
Discharge Medications:
DC Medications w/original date entered in [facility]
atorvastatin 40 mg tablet (Lipitor) 40 mg PO HS 08/29/24
cholecalciferol (vitamin D3) 25 mcg (1,000 unit) tablet (Vitamin D3) 25 mcg PO DAILY 08/29/24
docusate sodium 100 mg capsule (Colace) 200 mg PO HS Constipation 08/29/24
ezetimibe 10 mg tablet (Zetia) 10 mg PO DAILY 08/29/24
losartan 25 mg tablet 25 mg PO DAILY 08/29/24
omeprazole 20 mg tablet,delayed release 20 mg PO BID 08/29/24
prednisone 1 mg tablet 4 mg PO DAILY 08/29/24
tramadol 50 mg tablet 50 mg PO BID 08/29/24
vitamins A,C,M-crux-eqyedk 2,148 mcg-113 mg-45 mg-17.4 mg tablet (PreserVision AREDS) 1 tab PO BID 08/29/24
apixaban 5 mg tablet (Eliquis) 5 mg PO BID #60 tabs 08/31/24
metoprolol succinate 50 mg tablet,extended release 24 hr 50 mg PO BID #60 tabs 08/31/24
Home Medication Changes
Metoprolol dose increased to 50 mg twice daily.
Pending Results: No
[2024-08-31] MEDS: ELIQUIS 5 MG PO (12:49)
--- NOTE | 2024-08-31 13:46 | PTCARENOTE ---
IV heparin discontinued as ordered and patient given her first dose of eliquis. Seen by cardiology and is ok for discharge. Reviewed discharged instructions with the patient's and the patient and they state their understanding. Patient
discharged home with her to [facility].
== END 2024-08-31 13:51 | disposition home or self-care (01) | DRG 309 ==
LOC: IVU 22:48
PROVIDERS: Nurse Practitioner Family; Nurse Practitioner Gerontology; ADMITTING PHYSICIAN Internal Medicine; ATTENDING PHYSICIAN Hospitalist; EMERGENCY PHYSICIAN Emergency Medicine; FAMILY PHYSICIAN Internal Medicine Geriatric Medicine; OTHER PHYSICIAN Student in an Organized Health Care Education/Training Program
DX: I48.91 Unspecified atrial fibrillation (principal); F11.20 Opioid dependence, uncomplicated; I5A Non-ischemic myocardial injury (non-traumatic); I10 Essential (primary) hypertension; E78.5 Hyperlipidemia, unspecified; M06.9 Rheumatoid arthritis, unspecified; E03.9 Hypothyroidism, unspecified; I73.9 Peripheral vascular disease, unspecified; I71.40 Abdominal aortic aneurysm, without rupture, unspecified; Z66 Do not resuscitate; I25.10 Atherosclerotic heart disease of native coronary artery without angina pectoris; G89.4 Chronic pain syndrome; E66.09 Other obesity due to excess calories; Z68.29 Body mass index [BMI] 29.0-29.9, adult; Z79.899 Other long term (current) drug therapy; Z79.82 Long term (current) use of aspirin; Z87.891 Personal history of nicotine dependence; Z95.5 Presence of coronary angioplasty implant and graft
CPT/HCPCS: 71045; 80048; 80053; 80061; 83036; 83735; 83880; 84100; 84443; 84484; 85025; 85027; 85730; 87070; 93005; 93306; 96374; 96375; 96376; 97163; 97167; 99291